=== PATIENT | male | born 1980 | race Caucasian/White ===

== ENCOUNTER 2016-11-27 13:31 | Emergency (ER) | payer OTHER ==
--- NOTE | ~2016-11-27 | CR230 ---
[facility] A Service of [facility] & [facility] RADIOLOGY TEXT RESULTS PATIENT: IGNACIA ANN LOCATION: [facility] : 84 UNIT #: [id number] AGE: [address]: Hyun Padilla APRN SEX: M ORDER DR: [id number] [facility] [address] [place], [place] [address] [id number] MR#: [id number] Acc #: [id number] NAME: IGNACIA ANN : 1980 SEX: M STUDY DATE/TIME: 11/27/2016 14:31 UNIT: CFT[facility] ROOM: STUDY DESCRIPTION: CR Shoulder Min 2 View Rt Attending Physician: Hyun Padilla A.P.R.N. Ordering Physician: Francisco Steel M.D. Primary Care Physician: No Primary Care Physician MEDICAL IMAGING REPORT This report is preliminary unless electronic signature is present EXAM 3 views right shoulder. Date: 11/27/2016. HISTORY Right shoulder pain for 8 months. Fell out of a 2 story window. COMPARISON PA and lateral chest radiograph 03/26/2015, 02/16/2013. No dedicated right shoulder radiograph at this institution for comparison. FINDINGS There is mild irregularity of the distal right clavicle at the AC joint which may represent an old healed fracture, and appears new since the 03/26/2015 examination. However, no acute fracture is seen and there is no acromioclavicular or coracoclavicular separation. Glenohumeral joint appears intact. There is mild spurring at the inferior margin of the distal clavicle at the AC joint. IMPRESSION 1. There is irregularity of the distal right clavicle at the AC joint which may represent old healed fracture, this is a new finding since the 03/26/2015 exam. There is also mild spurring of the AC joint along its articular margin. 2. No glenohumeral fracture or dislocation. Dictated by... Madhuri Presley M.D. THIS IS AN ELECTRONICALLY VERIFIED REPORT Madhuri Presley M.D. at 11/28/2016 8:36 AM LLH/gz STS. [facility] A Service of [facility] & [facility] RADIOLOGY TEXT RESULTS PATIENT: IGNACIA ANN LOCATION: [facility] : 84 UNIT #: [id number] AGE: [address]: Hyun Padilla APRN SEX: M ORDER DR: TD: 11/27/2016 16:19 JOB #: [id number] MEDICAL IMAGING REPORT Page 1 of 1 COPY
[~2016-11-27 13:31] MED LIST: LEVOFLOXACIN500 MG PO
== END 2016-11-27 15:40 | disposition home or self-care (01) ==
LOC: CFTX 13:31 → CED 13:31 → CFTX 14:22
DX: G89.29 Other chronic pain (principal); M25.511 Pain in right shoulder; F32.9 Major depressive disorder, single episode, unspecified; F41.9 Anxiety disorder, unspecified; Z88.0 Allergy status to penicillin
CPT/HCPCS: 73030; 99283